=== PATIENT | female | born 1975 | race Caucasian/White ===

== ENCOUNTER 2020-07-10 17:29 | Emergency (ER) | payer MEDICAID ==
[~2020-07-10] VITALS: Ht 157.5 cm; Wt 117.3 kg
[2020-07-10] MEDS ORDERED: CEPH250T PO (18:49)
[2020-07-10] MEDS ORDERED: SULF1TAB45 PO (18:49)
[2020-07-10 19:42] VITALS: BP 114/66
== END 2020-07-10 19:43 | disposition home or self-care (01) ==
LOC: ER 17:30
DX: L02.214 Cutaneous abscess of groin (principal); R10.30 Lower abdominal pain, unspecified; I10 Essential (primary) hypertension; M19.90 Unspecified osteoarthritis, unspecified site; Z98.890 Other specified postprocedural states; Z72.89 Other problems related to lifestyle; Z79.2 Long term (current) use of antibiotics
CPT/HCPCS: 82948; 99283

== ENCOUNTER 2020-07-13 13:44 | Emergency (ER) | payer MEDICAID ==
[~2020-07-13] VITALS: Ht 154.9 cm; Wt 117.3 kg
[~2020-07-13 13:44] MED LIST: CEPH250T PO; SULF1TAB45 PO
[2020-07-13 13:59] VITALS: BP 164/103
[2020-07-13] MEDS ORDERED: CefTRIAXone/D5W-Rocephin 1gm 50 ML IV ONE (17:40)
[2020-07-13] MEDS ORDERED: vancomycin/NS 1 GM ADD-VANTAGE 250 ML IV ONE (17:40)
[2020-07-13 18:02] LABS: BASOPHILS # (AUTO) 0.1 X10'3 (0-0.2); EOSINOPHILS # (AUTO) 0.1 X10'3 (0-0.9); EOSINOPHILS % (AUTO) 1.3 % (0-6); HEMATOCRIT 41.1 % (35.0-45.0); HEMOGLOBIN 14.2 g/dl (12.0-16.0); LYMPHOCYTES % (AUTO) 19.9 % (21-51); MEAN CORPUSCULAR HEMOGLOBIN 30.2 PG (27.0-31.0); MEAN CORPUSCULAR HGB CONC 34.5 g/dL (33.0-36.5); MEAN CORPUSCULAR VOLUME 87.7 FL (78-98); MEAN PLATELET VOLUME 8.5 FL (7.4-10.4); MONOCYTES # (AUTO) 0.6 X10'3 (0-0.9); MONOCYTES % (AUTO) 6.2 % (2-12); NEUTROPHILS # (AUTO) 7.3 X10'3 (1.8-7.7); NEUTROPHILS % (AUTO) 71.6 % (42-75); PLATELET COUNT 263 X10'3 (140-440); RED BLOOD COUNT 4.69 X10'6 (4.20-5.60); RED CELL DISTRIBUTION WIDTH 15.4 % (11.5-14.5); WHITE BLOOD COUNT 10.2 X10'3 (4.5-11.0)
[2020-07-13 18:18] LABS: ALANINE AMINOTRANSFERASE 75 U/L (12-78); ALBUMIN 3.2 G/DL (3.4-5.0); ALBUMIN/GLOBULIN RATIO 0.7 (1.1-1.5); ALKALINE PHOSPHATASE 156 IU/L (46-116); ANION GAP 10 (8-16); ASPARTATE AMINO TRANSFERASE 38 U/L (10-37); BILIRUBIN,TOTAL 0.2 MG/DL (0.1-1.0); BLOOD UREA NITROGEN 11 MG/DL (7-18); BUN/CREATININE RATIO 13.3 (6.6-38.0); CALCIUM 9.4 MG/DL (8.5-10.1); CHLORIDE 101 MMOL/L (99-107); CREATININE 0.83 MG/DL (0.40-0.90); GLUCOSE 158 MG/DL (70-104); LIPASE 126 U/L (73-393); POTASSIUM 4.2 MMOL/L (3.5-5.1); SODIUM 136 MMOL/L (135-145); TOTAL CARBON DIOXIDE 24.7 MMOL/L (24-32); TOTAL PROTEIN 7.8 G/DL (6.4-8.2); eGFR 75 ML/MIN
[2020-07-13] MEDS ORDERED: iohexol 300mg/ml 100ml inj. ONE (18:35)
[2020-07-13] MEDS ORDERED: MESSAGE TO NURSING PO SCH (19:00)
[2020-07-13] MEDS ORDERED: SULF1TAB49 PO (19:37)
[2020-07-13] MEDS ORDERED: CEPH250T PO (19:37)
== END 2020-07-13 20:27 | disposition home or self-care (01) ==
LOC: ER 13:45
DX: S71.102A Unspecified open wound, left thigh, initial encounter (principal); I10 Essential (primary) hypertension; M19.90 Unspecified osteoarthritis, unspecified site; Z72.89 Other problems related to lifestyle; Z79.899 Other long term (current) drug therapy; X58.XXXA Exposure to other specified factors, initial encounter; Y93.89 Activity, other specified; Y92.89 Other specified places as the place of occurrence of the external cause; Y99.8 Other external cause status
CPT/HCPCS: 36415; 73701; 80053; 83690; 85025; 87070; 96365; 96375; 99285; J0696; J3370; Q9967; 87077; 87186

== ENCOUNTER 2024-10-21 08:43 | Emergency (ER) | payer MEDICAID ==
[~2024-10-21] VITALS: Ht 157.5 cm; Wt 89.8 kg
[~2024-10-21 08:43] MED LIST changes: +BACL10TA2 PO; -CEPH250T PO; +LEVO250T74 PO; +LINE600T14 PO; +METF-1203 PO; +METR500T PO; +PREG75CA76 PO; -SULF1TAB45 PO
[2024-10-21 08:45] VITALS: BP 121/94; PULSE 86; RESP 16; TEMP 98.7; O2SAT 98
[2024-10-21] MEDS ORDERED: SULF1TAB49 PO (09:35)
--- NOTE | 2024-10-21 09:35 | Physician Documentation ---
History of Present Illness ~ Chief Complaint: Toe pain Stated Complaint: TOE PAIN Time Seen by MD: 09:03 Primary Medical Doctor: Mariel Morgan Source: patient Mode of Arrival: POV Exam Limitations: no limitations HPI 49-year-old female with right 2nd toe pain and swelling after hitting it on something while gardening. Patient has history of type 2 diabetes this occurred a few days ago Tetanus witin 5 years: Yes Medication Reconciliation Allergies: Coded Allergies: codeine (Verified Allergy, Unknown, 10/21/24) Scheduled Baclofen (Baclofen), 1 TAB PO TID, (Reported) Levofloxacin (Levofloxacin), 250 MG PO DAILY@11 Linezolid (Linezolid), 600 MG PO Q12H Metformin HCl (Metformin HCl), 1 TAB PO BID, (Reported) Metronidazole (Flagyl), 500 MG PO TID Pregabalin (Pregabalin), 1 CAP PO BID, (Reported) Past Medical History Past Medical History: Hypertension, Diabetes, Arthritis Past Surgical History: other Alcohol Use: Occasionally Drug Use: none Review of Systems All Other Systems at this time: Reviewed and Negative Integumentary: Reports: see HPI Physical Exam Vital Signs: RN Vital Signs have been reviewed: Yes, Temperature: 98.7, Source: Temporal, Heart Rate: 86, Respiratory Rate: 16, BP: 121/94, Pulse Oximetry: 98, Weight: 89.800 Physical Exam General: Alert, no apparent distress. Respiratory: Lungs clear, no respiratory distress. Chest: No accessory muscle use. Cardiovascular: Regular rate and rhythm, no murmurs. Extremities: Normal range of motion, no deformity. Some swelling to the tip of the right 2nd toe toenail changing in opacity some crusting discharge to the nail bed no significant swelling or erythema Neurologic: Oriented x4. Psychiatric: Normal mood and affect. Skin: Normal color, warm and dry. No edema, no ecchymosis. Progress Results/Orders Results/Orders Vital Signs 10/21/24 08:45 Temp 98.7 Pulse 86 Resp 16 B/P (MAP) 121/94 Pulse Ox 98 Medical Decision Making Findings Toe which looks like it has a little cellulitis infection of the toenail it also looks like she will eventually lose the toenail diabetes likely is increasing her chances of infection as well. Departure Time of Disposition: 09:34 Disposition: 01 HOME / SELF CARE / HOMELESS Impression: Primary Impression: Toe swelling Condition: Stable Discharge Instructions: Ingrown Toenail Additional Instructions: Take antibiotics as prescribed do warm soaks daily to help facilitate drainage and cleaning of the toe especially with having diabetes. Very close monitoring and follow up with primary care in a week feel free to return to the ER for any new or worsening symptoms Referrals: NO PRIMARY CARE PROVIDER (PCP) Prescriptions Sulfamethoxazole/Trimethoprim (Bactrim Ds Tablet) 800 Mg-160 Mg Tablet 1 TAB PO Q12H for 7 Days, #14 TAB Prov: ALLY DEMPSEY NP 10/21/24 Education Educated: Patient Educated regarding: diagnosis, treatment, need for follow up Signature Scribe Signature: No Scribe Attestation: The note accurately reflects work and decisions made by me.Ally Dempsey - RAFAEL 10/21/24 09:35 ALLY DEMPSEY NP Oct 21, 2024 09:35
== END 2024-10-21 10:08 | disposition home or self-care (01) ==
LOC: ER 08:43
DX: M79.89 Other specified soft tissue disorders (principal); E11.9 Type 2 diabetes mellitus without complications; I10 Essential (primary) hypertension; M19.90 Unspecified osteoarthritis, unspecified site; Z88.5 Allergy status to narcotic agent
CPT/HCPCS: 99283